=== PATIENT | female | born 1990 | race Two or more races ===

== ENCOUNTER 2019-08-06 14:02 | Inpatient (IN) | payer MEDICAID ==
[~2019-08-06] VITALS: Ht 152.4 cm; Wt 61.0 kg
[2019-08-06 15:16] LABS: Urine Bacteria FEW /hpf (None Seen); Urine Blood 2+ /uL (Negative); Urine Specific Gravity 1.004 (1.001-1.035); Urine WBC 1 /hpf (0 - 5)
[2019-08-06 16:50] LABS: Basophils # (auto) 0 uL; Basophils % (auto) 0.4 % (0.0-2.0); Eosinophils # (auto) 0.1 uL; Eosinophils % (auto) 1.9 % (0.0-7.0); Hematocrit 38.3 % (36.0-46.0); Hemoglobin 12.8 g/dL (12.2-16.2); Lymphocytes # (auto) 1.3 uL; Lymphocytes % (auto) 25.4 % (10.0-50.0); Mean Corpuscular Hemoglobin 31.9 pg (28.0-32.0); Mean Corpuscular Hgb Conc. 33.5 g/dL (32.0-36.0); Mean Corpuscular Volume 95.4 fL (80.0-100.0); Monocytes # (auto) 0.5 uL; Monocytes % (auto) 8.9 % (0.0-12.0); Neutrophils # (auto) 3.3 uL; Neutrophils % (auto) 63.4 % (37.0-80.0); Platelet Count (auto) 147 10^3/uL (140-450); Red Blood Cells 4.02 10^6/uL (4.0-5.20); Red Cell Distribution Width 13.1 % (11.8-14.3); White Blood Cell 5.2 10^3/uL (4.4-10.8)
[2019-08-06] MEDS ORDERED: NITROGLYCERIN 0.4 MG SL TAB SL PRN (20:00)
[2019-08-06] MEDS ORDERED: LACTATED RINGER'S 1,000 ML IV ONE (20:00)
[2019-08-06] MEDS ORDERED: MORPHINE SULF INJ 2 MG/ML SYRINGE 1ML IV PRN (20:00)
[2019-08-06 20:41] LABS: BUN/Creatinine Ratio 12.7; Bilirubin, Total 0.7 mg/dL (0.2-1.0); Calcium 8.7 mg/dL (8.5-10.1); Potassium 3.3 mmol/L (3.5-5.1); Total Protein 8.4 g/dL (6.4-8.2)
[2019-08-06] MEDS ORDERED: ROCURONIUM 10MG/ML 10ML VIAL IV ONE (20:45)
[2019-08-06] MEDS ORDERED: GLYCOPYRROLATE 0.2 MG/ML 1ML VIAL IV ONE (20:45)
[2019-08-06] MEDS ORDERED: NEOSTIGMINE 1 MG/ML INJ (10mg/10ML VIAL) IV ONE (20:45)
[2019-08-06] MEDS ORDERED: MEPERIDINE HCL (25 MG/ML) 1ML VIAL ONE (20:47)
[2019-08-06] MEDS ORDERED: fentaNYL CITRATE 100 MCG/2 ML VL ONE (20:48)
[2019-08-06] MEDS ORDERED: MIDAZOLAM HCL 1MG/1ML-2 ML VIAL ONE (20:48)
[2019-08-06 20:57] LABS: INR 1.05 (0.9-1.15); Partial Thromboplastin Time 27.4 sec (23.64-32.05)
[2019-08-06] MEDS ORDERED: ceFAZolin 1GM/50ML 50 ML IV ONE (21:02)
[2019-08-06] MEDS ORDERED: ONDANSETRON HCL 4 MG/2 ML VIAL IV PRN ×2 (21:15→22:45)
[2019-08-06] MEDS ORDERED: MIDAZOLAM HCL 1MG/1ML-2 ML VIAL IV PRN (21:15)
[2019-08-06] MEDS ORDERED: HYDROmorphone HCL 2 MG/ML VL IV PRN (21:15)
[2019-08-06] MEDS ORDERED: KETOROLAC TROMETH 30 MG/ML 1ML VIAL IV ONE (21:15)
[2019-08-06] MEDS ORDERED: ePHEDrine SULFATE 50 MG/ML AMP IV PRN (21:15)
[2019-08-06] MEDS ORDERED: MORPHINE SULFATE 4 MG/ML SYR/VIAL IV PRN (21:15)
[2019-08-06] MEDS ORDERED: LABETALOL HCL 5 MG/ML 4ML SYRINGE IV PRN (21:15)
[2019-08-06] MEDS ORDERED: DexAMETHasone SOD PHOS 10MG/1ML VIAL INJ ONE (21:28)
[2019-08-06] MEDS ORDERED: PROPOFOL 10 MG/ML 20 ML IV ONE (21:28)
--- NOTE | 2019-08-06 23:15 | NUR ---
BENJAMIN FONG admitted to M/S unit after SBAR received from PACU, Patient oriented to ELIZABETH RENAE, primary RN, unit, room, bed, and unit policies regarding patient care and visiting hours. Assessment and Vital signs taken, surgical site assessed for redness, swelling, or bleeding. Patient instructed on need to inform staff immediately for any pain, swelling, bleeding or pulling or popping sensations at surgical site. Patient verbalized understanding. All questions and concerns addressed, patient verbalized understanding.
[2019-08-07] VITALS (7 sets, daily range): BP systolic 95–120; BP diastolic 49–66
--- NOTE | 2019-08-07 | NUR ---
SCD's applied to bilateral legs.
--- NOTE | 2019-08-07 | NUR ---
Incentive Spirometry Given to patient educated patient on risks and benefits of use, patient verbalized understanding return demonstration.
[2019-08-07] MEDS: HYDROmorphone HCL 2 MG/ML VL IV PRN ×2 (00:34→04:53)
[2019-08-07] MEDS: LACTATED RINGER'S 1,000 ML IV SCH ×4 (00:37→18:32)
[2019-08-07 05:29] LABS: Basophils # (auto) 0 uL; Basophils % (auto) 0.1 % (0.0-2.0); Eosinophils # (auto) 0 uL; Eosinophils % (auto) 0.1 % (0.0-7.0); Hematocrit 32.9 % (36.0-46.0); Hemoglobin 11.4 g/dL (12.2-16.2); Lymphocytes # (auto) 0.4 uL; Lymphocytes % (auto) 5.3 % (10.0-50.0); Mean Corpuscular Hemoglobin 32.8 pg (28.0-32.0); Mean Corpuscular Hgb Conc. 34.5 g/dL (32.0-36.0); Mean Corpuscular Volume 95.1 fL (80.0-100.0); Monocytes # (auto) 0.1 uL; Monocytes % (auto) 0.8 % (0.0-12.0); Neutrophils % (auto) 93.7 % (37.0-80.0); Nucleated Red Blood Cells % 0.1 %; Platelet Count (auto) 111 10^3/uL (140-450); Red Blood Cells 3.46 10^6/uL (4.0-5.20); Red Cell Distribution Width 12.8 % (11.8-14.3); White Blood Cell 7.5 10^3/uL (4.4-10.8)
[2019-08-07] MEDS: ceFAZolin 1GM/50ML 50 ML IV SCH ×3 (06:00→22:23)
--- NOTE | 2019-08-07 07:30 | NUR ---
Opening Shift Note Assumed care of patient, awake and alert. No S/S of distress/SOB or pain. Bed in lowest and locked position with side rails upx2 and call light within reach. Instructed on POC and to call for assist PRN, will continue to monitor for changes Q1hr and PRN.
--- NOTE | 2019-08-07 08:30 | NUR ---
SPOKE TO DR. GALVIN CALLED AND SPOKE TO DR. GALVIN. OBTAINED ORDERS TO D/C MADISON CATHETER, TAKE OFF SURGICAL DRESSING AND LEAVE OPEN TO AIR AND POTASSIUM 40 MEQ PO. NEW ORDERS RECEIVED, READ BACK AND VERIFIED.
[2019-08-07] MEDS ORDERED: HYDROcodone-ACET 5/325MG TAB PO PRN ×2 (08:45)
[2019-08-07] MEDS: DOCUSATE SOD 100 MG CAP PO SCH ×2 (09:39→22:23)
[2019-08-07] MEDS: KETOROLAC TROMETH 30 MG/ML 1ML VIAL IV PRN ×2 (09:40→18:26)
--- NOTE | 2019-08-07 09:50 | NUR ---
Rutledge catheter dc'd Order to discontinue rutledge catheter. Rutledge dc'd with clean technique following deflation of balloon. Patient tolerated well with no complaints of pain. Continue care.
[2019-08-07] MEDS ORDERED: POTASSIUM CHL 20 Meq TABLET PO ONE (10:00)
--- NOTE | 2019-08-07 11:30 | NUR ---
PT VOIDED SINCE REMOVING MADISON CATHETER.
[2019-08-07] MEDS ORDERED: LORA-154 (16:54)
--- NOTE | 2019-08-07 19:45 | NUR ---
Opening shift note Pt is resting in bed with eyes open and resp rate is even and unlabored. Pt's abd incision is w/ jeffery, well approximated , and cdi w/ no redness or swelling. POC discussed with pt and pt verbalizes understanding. Bed is low, wheels are locked, and call light is with in reach.
[2019-08-08] MEDS: LACTATED RINGER'S 1,000 ML IV SCH ×2 (01:12→07:52)
[2019-08-08 04:56] VITALS: BP 95/56
[2019-08-08] MEDS: ceFAZolin 1GM/50ML 50 ML IV SCH (05:57)
[2019-08-08 09:38] VITALS: BP 93/51
[2019-08-08] MEDS: DOCUSATE SOD 100 MG CAP PO SCH (10:01)
[2019-08-08] MEDS: KETOROLAC TROMETH 30 MG/ML 1ML VIAL IV PRN (10:01)
--- NOTE | 2019-08-08 12:00 | NUR ---
Discharge instructions given as ordered. Encourage to follow up with PMD as instructed. All questions and concerns addressed. Patient verbalized understanding. Medication reconciliation form completed and copy given to patient. No Home medications held in Pharmacy. Pt refused vaccines. Prescriptions given to patient. IV removed with catheter intact, pressure dressing applied.
[2019-08-08 12:30] VITALS: BP 100/58
--- NOTE | 2019-08-08 13:20 | NUR ---
Patient taken to vehicle via wheelchair with all personal belongings, accompanied by staff and family member. No distress noted at time of departure.
== END 2019-08-08 13:20 | disposition home or self-care (01) | DRG 545 ==
LOC: ER 14:02 → OVERFLOW 14:03 → WEST WING 23:29
PROVIDERS: ADMIT Specialist; ATTEND Specialist
PROC: 0UB60ZZ Excision of Left Fallopian Tube, Open Approach (ICD-10-PCS; 2019-08-06)
PROC: 0WCG0ZZ Extirpation of Matter from Peritoneal Cavity, Open Approach (ICD-10-PCS; 2019-08-06)
PROC: 10T20ZZ Resection of Products of Conception, Ectopic, Open Approach (ICD-10-PCS; principal; 2019-08-06 20:45)
DX: O00.102 Left tubal pregnancy without intrauterine pregnancy (principal); K66.1 Hemoperitoneum; O08.89 Other complications following an ectopic and molar pregnancy; Z82.49 Family history of ischemic heart disease and other diseases of the circulatory system; Z83.3 Family history of diabetes mellitus
CPT/HCPCS: 36415; 76801; 80053; 81001; 81025; 84702; 85025; 85610; 85730; 86850; 86900; 86901; 96361; 96374; 96375; G0378; J0690; J1100; J1885; J2250; J2405; J2704